=== PATIENT | female | born 1950 | race Hispanic/Latino ===

== ENCOUNTER 2023-12-30 20:13 | Emergency (ER) | payer MEDICARE ==
[2023-12-30] MEDS ORDERED: MELOXICAM 7.5 MG TABLET PO SCH (21:30)
[2023-12-30] MEDS ORDERED: MELO5CAP3 PO (22:36)
[2023-12-30 22:40] VITALS: BP 138/74; PULSE 82; RESP 18; O2SAT 98
== END 2023-12-30 22:53 | disposition home or self-care (01) ==
LOC: EDH 20:13
DX: S86.812A Strain of other muscle(s) and tendon(s) at lower leg level, left leg, initial encounter (principal); I10 Essential (primary) hypertension; E78.00 Pure hypercholesterolemia, unspecified; X58.XXXA Exposure to other specified factors, initial encounter; Y93.01 Activity, walking, marching and hiking; Y92.89 Other specified places as the place of occurrence of the external cause; Y99.8 Other external cause status
CPT/HCPCS: 73562